=== PATIENT | male | born 1975 | race Caucasian/White ===

== ENCOUNTER 2021-02-01 21:22 | Emergency (ER) | payer BC ==
[~2021-02-01] VITALS: Ht 182.9 cm; Wt 100.0 kg
--- NOTE | 2021-02-01 21:50 | PHYS DOC ---
Past History Past Medical History: Arthritis General Adult EDM: Chief Complaint: BACK PAIN OR INJURY HPI: HPI: ".. Bent over in the shower. and my back went out... "..".. I am hurting really bad.. ".. " I ve had this one before.. but not this bad... ".. " I have injury to my back before on the job..but usually able to work it out.. 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 The pain is located in the midline lumbar sacral and and some radiation into bilateral sciatic nerve area. Patient has no saddle loss. Has not had any problems with urination or defecation. Patient does not have a history of cancer, immunosuppression, IV drug use,. No history recent fever or chills. Recent travel from [facility] to visit family here in [place]. Patient has had problems in the past with low back pain. Patella reflex +2 and equal. Does have an guarded gait. No significant straight leg inducement of sciatica. Pt. is accompanied with his who is also a [place] [employer] woman. Reports no problems with defecation or urination. Review of Systems: Review of Systems: Constitutional: Denies fever or chills Eyes: Denies change in visual acuity HENT: Denies nasal congestion or sore throat Respiratory: Denies cough or shortness of breath Cardiovascular: Denies chest pain or edema GI: Denies abdominal pain, nausea, vomiting, bloody stools or diarrhea : Denies dysuria Musculoskeletal: Complains of back pain Integument: Denies rash Neurologic: Denies headache, focal weakness or sensory changes Endocrine: Denies polyuria or polydipsia Lymphatic: Denies swollen glands Psychiatric: Denies depression or anxiety Family History: Family History: Noncontributory to presentation Current Medications: Current Meds: See nursing for home meds Allergies: Allergies: No known drug allergies Physical Exam: PE: Constitutional:in acute distress, non-toxic appearance. Patient having a very guarded gait . HENT: Normocephalic, atraumatic, bilateral external ears normal, oropharynx moist, no oral exudates, nose normal. [] Eyes: PERRLA, EOMI, conjunctiva normal, no discharge. [] Neck: Normal range of motion, no tenderness, supple, no stridor. [] Cardiovascular:Heart rate regular rhythm, no murmur [] Lungs & Thorax: Bilateral breath sounds clear to auscultation [] Abdomen: Bowel sounds normal, soft, no tenderness, no masses, no pulsatile masses. [] No obvious saddle loss. Patient declines rectal exam at this time. Circumcised male testicles descended. Skin: Warm, dry, no erythema, no rash. [] Back: Lumbar sacral tenderness, midline lumbar sacral pain, marked lumbar sacral muscle spasms no CVA tenderness. [] Extremities: No tenderness, no cyanosis, no clubbing, ROM intact, no edema. [] Neurologic: Alert and oriented X 3, moves all extremities on request, does have distal sensory function, no focal deficits noted. DTRs +2 patella Psychologic: Affect anxious, judgement normal, mood normal. [] EKG: EKG: [] Radiology/Procedures: Radiology/Procedures: [][place] [id number] IMAGING REPORT Signed PATIENT: JOSE SALGADO ACCOUNT: [id number] : 1975 LOCATION: ER AGE: 45 SEX: M EXAM STATUS: REG ER ORD. PHYSICIAN: SHIRA ENGLE MD REASON: severe back pain PROCEDURE: CT LUMBAR SPINE WO CONTRAST Examination: CT lumbar spine without contrast HISTORY: History of severe back pain COMPARISON: None available TECHNIQUE: Axial CT images of the lumbar spine was performed without contrast. Coronal and sagittal reformats are performed Exposure: One or more of the following individualized dose reduction techniques were utilized for this examination: 1. Automated exposure control 2. Adjustment of the mA and/or kV according to patient size 3. Use of iterative reconstruction technique FINDINGS: The lumbar vertebral body heights are maintained. The bilateral facets are well aligned. Mild disc bulges identified at L2-L3, L3-L4, L4-L5 vertebral levels. IMPRESSION: 1. No acute osseous findings. 2. Mild disc bulges identified at L2-L3, L3-L4, L4-L5 vertebral levels likely degenerative changes. Electronically signed by: Michael Barriga MD (02/02/2021 12:03 AM) [id number] DICTATED AND SIGNED BY: MICHAEL BARRIGA MD DATE: 02/02/21 0001 CC: SHIRA ENGLE MD; NON,STAFF ~MTH0 0 Heart Score: C/O Chest Pain: N/A Risk Factors: Risk Factors: DM, Current or recent (<one month) smoker, HTN, HLP, family history of CAD, obesity. Risk Scores: Score 0 - 3: 2.5% MACE over next 6 weeks - Discharge Home Score 4 - 6: 20.3% MACE over next 6 weeks - Admit for Clinical Observation Score 7 - 10: 72.7% MACE over next 6 weeks - Early Invasive Strategies Course & Med Decision Making: Course & Med Decision Making Pertinent Labs and Imaging studies reviewed. (See chart for details) Patient use ice packs as needed. Continue range of motion throughout the day. If no reinjury may advance to moist heat after 3 days. Take Flexeril 10 mg up to 3 times a day as needed for muscle spasms. Take Tylenol and ibuprofen for pain. For marked pain may take Vicoprofen up to 4 times a day. Patient issued a disc of his CT to take with him on follow-up with his primary care. Patient was able to ambulate after observation and meds given in the emergency department. Still had a markedly guarded gait. Warned patient may need further radiographic evaluation if his pain remained severe. Recommend follow-up with primary consider MRI if no improvement, surgical consult. Patient avoid heavy lifting. Patient avoid ballistic activity the next few days. Return if any concerns. Impression: 1. Acute lumbosacral sprain/facet syndrome 2. Extensive degenerative joint changes lumbosacral [] Adilene Disclaimer: Dragsandra Disclaimer: This electronic medical record was generated, in whole or in part, using a voice recognition dictation system. Departure Departure: Referrals: NON,STAFF (PCP) Scripts Cyclobenzaprine Hcl (CYCLOBENZAPRINE HCL) 10 Mg Tablet 10 MG PO TID PRN PRN for spasms, #30 TAB Prov: SHIRA ENGLE MD 02/02/21 Hydrocodone/Ibuprofen (HYDROCODONE-IBUPROFEN 7.5-200 ) 1 Each Tablet 1 TAB PO PRN Q6HRS PRN for PAIN, #30 TAB 0 Refills Prov: SHIRA ENGLE MD 02/02/21 Dragsandra Disclaimer This chart was dictated in whole or in part using Voice Recognition software in a busy, high-work load, and often noisy Emergency Department environment. It may contain unintended and wholly unrecognized errors or omissions. SHIRA ENGLE MD Feb 01, 2021 21:50
[2021-02-01] MEDS ORDERED: MORPHINE SULFATE 10 MG/ML SYRINGE. SQ ONE (23:30)
[2021-02-01] MEDS ORDERED: KETOROLAC 60 MG/2 ML VIAL. IM ONE (23:30)
[2021-02-01] MEDS ORDERED: ORPHENADRINE CITRATE 60 MG/2 ML VIAL. IM ONE (23:30)
[2021-02-01] MEDS ORDERED: LORazepam 1 MG TABLET PO ONE (23:30)
--- NOTE | 2021-02-02 00:05 | RAD ---
Examination: CT lumbar spine without contrast HISTORY: History of severe back pain COMPARISON: None available TECHNIQUE: Axial CT images of the lumbar spine was performed without contrast. Coronal and sagittal r eformats are performed Exposure: One or more of the following individualized dose reduction techniques were utilized for thi s examination: 1. Automated exposure control 2. Adjustment of the mA and/or kV according to patient size 3. Use of iterative reconstruction technique FINDINGS: The lumbar vertebral body heights are maintained. The bilateral facets are well aligned. Mi ld disc bulges identified at L2-L3, L3-L4, L4-L5 vertebral levels. IMPRESSION: 1. No acute osseous findings. 2. Mild disc bulges identified at L2-L3, L3-L4, L4-L5 vertebral levels likely degenerative changes. Electronically signed by: Michael Barriga MD (02/02/2021 12:03 AM) [id number]
[2021-02-02] MEDS ORDERED: CYCL10TA19 PO (00:44)
[2021-02-02] MEDS ORDERED: HYDR-1179 PO (00:44)
[2021-02-02 00:55] VITALS: BP 132/61
== END 2021-02-02 00:55 | disposition home or self-care (01) ==
LOC: ER 21:22
DX: M47.817 Spondylosis without myelopathy or radiculopathy, lumbosacral region (principal); M19.90 Unspecified osteoarthritis, unspecified site; M62.830 Muscle spasm of back
CPT/HCPCS: 72131; 96372; 99284; J1885; J2270; J2360